=== PATIENT | female | born 1990 | race Caucasian/White ===

== ENCOUNTER 2017-01-04 11:36 | Emergency (ER) | payer BC, OTHER ==
[2017-01-04] MEDS ORDERED: Tetan/Diph/Pertus SYR(Tdap)* 0.5 ML SYR(BOOSTRIX) use SYR IM ONE (12:21)
--- NOTE | 2017-01-04 13:43 | UC ---
Sebastian Fong Thomas, [facility] on 01/04/17 at 1255 . Lower Extremity/Ankle HPI - HPI Summary HPI Summary: The pt is a 26 y/o F presenting to [facility] c/o right foot pain and an abrasion to her medial right foot that began three days ago. She works at a [employer] and she reports that she was opening a vault and accidentally cut her foot on metal. She describes the abrasion as a scrape. The pt rates the foot pain 5/10 and describes the pain as an ache. The pain is aggravated by ambulation. The pain alleviated by nothing. The patient has treated the pain with nothing [employer], although she took an Advil for a JUDGE this AM. Pt additionally c/o ecchymosis to her right foot. Pt denies knee pain or any other complaints. PMHx: fatty liver disease. PSHx: none. SHx: no smoking, weekly alcohol use, no illicit drug use. FHx: CA, thyroid disease. MD Note: BP 129/84. Vital signs normal. Visit history: noncontributory. Nurses Note: was opening a vault the corner of the vault cut her inside of her right foot. this happened on Tuesday. there is a bruise there as well. she wants to make sure that the cut is not infected and she thinks that she needs a tetanus shot. she states that she could not come in until today because of the holiday weekend she could not get approval from her work to come in. she has not taken anything for the pain. she took Advil for a headache this morning. - History of Current Complaint Chief Complaint: UCLowerExtremity Stated Complaint: FOOT LACERATION Time Seen by Provider: 01/04/17 12:21 Hx Obtained From: Patient Hx Last Menstrual Period: 12/12/16 Onset/Duration: Sudden Onset, Lasting Days - 3, Still Present Pain Intensity: 5 Pain Scale Used: 0-10 Numeric Aggravating Factor(s): Other - Movement Alleviating Factor(s): Nothing - Allergies/Home Medications Allergies/Adverse Reactions: Allergies Allergy/AdvReac Type Severity Reaction Status Date / Time No Known Allergies Allergy Verified 01/04/17 11:58 Home Medications: Home Medications Ibuprofen TAB* [Advil TAB*] 400 mg PO ONCE PRN 01/04/17 [History Confirmed 01/04] PMH/Surg Hx/FS Hx/Imm Hx Previously Healthy: No - Fatty liver disease Respiratory History: Other Other Respiratory History: NEG: COPD - Surgical History Surgical History: None - Family History Known Family History: Positive: Other - POS: CA, THYROID DISEASE Negative: Diabetes, Blood Disorder - Social History Alcohol Use: Weekly Substance Use Type: None Smoking Status (MU): Never Smoked Tobacco - Immunization History Most Recent Influenza Vaccination: never Most Recent Tetanus Shot: unk Most Recent Pneumonia Vaccination: never Review of Systems Constitutional: Negative Skin: Bruising - to right foot, Other - POS: abrasion to inside of right foot Eyes: Negative ENT: Negative Respiratory: Negative Cardiovascular: Negative Gastrointestinal: Negative Genitourinary: Negative Motor: Negative Neurovascular: Negative Musculoskeletal: Other: - POS: R foot pain (worsened with ambulation); NEG: R knee pain. Neurological: Negative Psychological: Negative All Other Systems Reviewed And Are Negative: Yes Physical Exam Triage Information Reviewed: Yes Vital Signs: Initial Vital Signs Temp 98.6 F 01/04/17 11:51 Pulse 92 01/04/17 11:51 Resp 16 01/04/17 11:51 BP 129/84 01/04/17 11:51 Vital Signs Reviewed: Yes - Additional Comments Appearance: The patient is well-appearing, is in no pain distress, and is well- nourished. Eyes: Conjunctiva are clear. ENT: The hearing is grossly normal, the pharynx is normal, and the TMs are normal. There is no muffled or hoarse voice. Neck: The neck is supple and nontender. Respiratory: The chest is nontender. The lungs are clear, there are normal breath sounds, and there is no respiratory distress. Cardiovascular: Heart is regular rate and rhythm. There is no murmur. Abdomen: The abdomen is soft and nontender. There is no organomegaly. Bowel sounds: present Musculoskeletal: THERE IS TENDERNESS OF THE FIRST METATARSAL. Strength is intact. The patient moves all extremities. Neurological: The patient is alert. Psychological: The patient displays age appropriate behavior Skin: THERE IS AN ABRASION OF THE FIRST METATARASAL PHALANGEAL JOINT. THERE IS NO EVIDENCE OF INFECTION. THERE IS SURROUNDING ECCHYMOSIS. Negative for rashes. Lower Extremity Course/Dx - Course Course Of Treatment: The patient presents with R foot pain s/p an abrasion to her foot that occurred three days ago. Medications have been included in the original chart and reviewed. Patient is Urgent/Emergent. BP elevated due to current condition w/o HTN in PMH. In the UCE In the UCE course the patient was given a TDAP vaccine. No evidence of infection. She is diagnosed with 1. superficial abrasion of the right foot, and 2. Contusion of the first metatarsal. - Differential Dx/Diagnosis Differential Diagnosis/HQI/PQRI: Other - Fracture, contusion Provider Diagnoses: 1. superficial abrasion of the right foot, and 2. Contusion of the first metatarsal. Discharge - Discharge Plan Condition: Stable Disposition: HOME Patient Education Materials: Foot Contusion (ED) Referrals: Santhosh Telelz MD [Primary Care Provider] - Additional Instructions: Thank you for helping us improve patient care by filling out the My Point Survey. WE DISCUSSED: You have bruised your right foot and have an abrasion. We will call with final radiologist reading of your x ray if any problems are seen. Watch for infection. Use pedrito and crutches until you are pain free with walking. Warm moist heat in the morning; ice to area after use for discomfort. Follow up at any time for new pain or disability or signs of infection. The documentation as recorded by the Sebastian rondon Thomas accurately reflects the service I personally performed and the decisions made by , Shiraz Linder MD.
[2017-01-04 13:44] VITALS: BP 123/88
--- NOTE | 2017-01-04 14:06 | RAD ---
INDICATION: Right foot injury. TECHNIQUE: 3 views of the right foot were obtained. FINDINGS: There is soft tissue swelling in the right great toe and adjacent to the first metatarsal. No fracture is seen. The bones are in normal alignment. Joint spaces appear maintained. IMPRESSION: SOFT TISSUE INJURY, NO FRACTURE IS SEEN.
== END 2017-01-04 13:54 | disposition home or self-care (01) ==
LOC: UCEAST 11:36
DX: S90.811A Abrasion, right foot, initial encounter (principal); S90.111A Contusion of right great toe without damage to nail, initial encounter; W45.8XXA Other foreign body or object entering through skin, initial encounter; Y93.89 Activity, other specified; Y92.510 Bank as the place of occurrence of the external cause; Y99.0 Civilian activity done for income or pay; Z23 Encounter for immunization
CPT/HCPCS: 90715; 99213; G0463